=== PATIENT | female | born 1980 | race Hispanic/Latino ===

== ENCOUNTER 2019-06-01 19:13 | Emergency (ER) | payer OTHER, SELFPAY | END 2019-06-01 21:24 | disposition home or self-care (01) | LOC: ERS 19:13 | DX: O99.511 Diseases of the respiratory system complicating pregnancy, first trimester (principal); J10.1 Influenza due to other identified influenza virus with other respiratory manifestations; Z3A.12 12 weeks gestation of pregnancy | CPT/HCPCS: 87081; 87430; 87804; 99283 ==

== ENCOUNTER 2019-11-28 11:12 | Outpatient (CLI) | payer OTHER ==
[2019-11-29 14:17] LABS: SARS-CoV-2 MS2 Positive; SARS-CoV-2 N Gene Negative; SARS-CoV-2 S Gene Negative; SARS-CoV-2 by NAA Not Detected (NotDetected); SARS-CoV-2 orf1ab Negative
== END 2019-11-28 11:13 | disposition home or self-care (01) ==
LOC: LABSCS 11:12
PROVIDERS: ATTEND Obstetrics & Gynecology
DX: Z01.812 Encounter for preprocedural laboratory examination (principal); Z11.59 Encounter for screening for other viral diseases
CPT/HCPCS: 87635; U0003

== ENCOUNTER 2019-11-29 05:34 | Inpatient (IN) | payer OTHER ==
[2019-11-29 06:20] VITALS: BMI 31.8
[2019-11-29 06:48] LABS: Amnisure Test RUPTURE DETECTED (No Rupture)
[2019-11-29 06:49] LABS: Amnisure Internal Control QC ACCEPTABLE (ACCEPTABLE)
[2019-11-29] MEDS ORDERED: Diphenoxylate HCl/Atropine Tablet PO PRN ×2 (07:12)
[2019-11-29] MEDS ORDERED: Acetaminophen 500 MG TAB PO PRN (07:12)
[2019-11-29] MEDS ORDERED: Carboprost 250 MCG/ML AMP IM PRN (07:12)
[2019-11-29] MEDS ORDERED: Ondansetron PF 4 MG/2 ML Vial IVP PRN ×3 (07:12→14:26)
[2019-11-29] MEDS ORDERED: Butorphanol Tartrate 1 MG/ML VIAL SLOW IVP PRN (07:12)
[2019-11-29] MEDS ORDERED: hydrALAZINE 20 MG/ML VIAL SLOW IVP PRN ×2 (07:12→14:26)
[2019-11-29] MEDS ORDERED: Lidocaine 1% (PF) 30 ML VIAL SC PRN (07:12)
[2019-11-29] MEDS ORDERED: Ibuprofen 800 MG TAB PO PRN (07:12)
[2019-11-29] MEDS ORDERED: NS / Oxytocin 40 units/1000ml 1,000 ML IV PRN (07:12)
[2019-11-29] MEDS ORDERED: Promethazine HCl 25 MG/ML VIAL IM PRN ×2 (07:12→10:51)
[2019-11-29] MEDS ORDERED: Methylergonovine 0.2 MG/ML VIAL IM PRN (07:12)
[2019-11-29] MEDS ORDERED: Misoprostol 200 MCG TAB PR PRN (07:12)
[2019-11-29] MEDS ORDERED: HYDROcodone/Acetaminophen 5/325 mg Tablet PO PRN ×4 (07:12→14:26)
[2019-11-29] MEDS ORDERED: NS w/ Oxytocin 10 units 500 ML ONE (07:40)
[2019-11-29 07:46] LABS: Hemoglobin 13.3 g/dL (12.0-16.0); Mean Corpuscular HGB CONC 35.1 g/dL (32.0-36.0); Mean Corpuscular Volume 88.4 fL (78.0-98.0); Mean Platelet Volume 8.2 fL (7.4-10.4); Platelet Count 201 thou/uL (130-400); RBC Distribution Width 12.9 % (11.5-14.5); Red Blood Cell (RBC) Count 4.27 mill/uL (4.20-5.40); White Blood Cell (WBC) Count 9.5 thou/uL (4.8-10.8)
[2019-11-29] MEDS: Lactated Ringer's 1,000 ML IV SCH ×2 (08:06→09:46)
[2019-11-29] MEDS: Misoprostol 100 MCG TAB PO SCH (08:07)
[2019-11-29 08:24] LABS: Syphilis Antibody Nonreactive (Nonreactive); Syphilis Antibody Index 0.03 S/CO (<1.00 Non-Reactive)
[2019-11-29 08:25] LABS: Hep B Surf Ag Non-Reactive S/CO (NonReactive)
[2019-11-29] MEDS ORDERED: Fentanyl 4 mcg/Bup 0.1% Cadd 100 ML ONE (08:42)
--- NOTE | 2019-11-29 10:42 | PDOC.LDHP ---
Labor and Delivery H&P Chief complaint: loss of fluid HPI: Pt reports LOF at home with cramping. Amnisure positive. Current gestational age (weeks): 39 Due date: 12/02/19 Grav: 3 Para: 2 Current complications: none Abnormal US findings: No Current medications: pre- vitamins Previous surgical history: other (breast) Allergies/Adverse Reactions: Allergies Allergy/AdvReac Type Severity Reaction Status Date / Time No Known Allergies Allergy Verified 11/29/19 06:22 Social history: none - Physical Exam Vital signs reviewed and normal: yes General: resting Heart: RRR Lungs: CTAB Abdomen: gravid Extremeties: no edema FHT: category 1 - Vaginal Exam cm dilated: 1 Effacement: 50% Station: -2 - OB Labs Blood type: O RH: positive Antibody Screen: negative HIV: negative RPR: negative HEPSAg: negative 1 hour GCT: negative 3 hour GTT: WNL GBS: negative Urine drug screen: negative Rubella: immune - Assessment L&D Assessment: term patient in labor - Plan Plan: admit to L&D, labor augmentation if indicated, informed consent obtained, anesthesia consult for pain management
[2019-11-29] MEDS ORDERED: Acetaminophen 325 MG TAB PO PRN (10:51)
[2019-11-29] MEDS ORDERED: Lactated Ringer's 500 ML IV PRN (10:51)
[2019-11-29] MEDS ORDERED: EPHEDRINE 25 MG/5 ML SYRINGE SLOW IVP PRN (10:51)
[2019-11-29] MEDS ORDERED: Naloxone HCl 0.4 mg/ml Vial IVP PRN ×2 (10:51)
[2019-11-29] MEDS ORDERED: diphenhydrAMINE 50 MG/ML VIAL IVP PRN (10:51)
[2019-11-29] MEDS ORDERED: Communication Order-Pharmacy FS SCH (11:00)
[2019-11-29] MEDS ORDERED: Fentanyl 4 mcg/Bupivacaine 0.1% Cassette 100 ML EPIDURAL SCH (11:00)
[2019-11-29] MEDS ORDERED: Bupivacaine/Epinephrine 0.25% 30 ML VIAL ONE (11:40)
--- NOTE | 2019-11-29 12:58 | PDOC.OPDEL ---
OB Operative/Delivery Note Delivery Dr/Surgeon: Naveen Pre-Delivery Diagnosis: ruptured membrane Procedure/Post Delivery Dx: spontaneous vaginal delivery Weeks gestation: 39 Anesthesia: epidural - Findings A Sex: female - Additional Findings/Plan Placenta delivered: spontaneous Repaired Obstetrical Laceration: 1st degree Estimated blood loss: 100ml Post delivery plan: routine recovery
[2019-11-29] MEDS ORDERED: NS / Oxytocin 40 units/1000ml 1,000 ML IV SCH (14:26)
[2019-11-29] MEDS ORDERED: Preparation H Ointment 28 GM TUBE PR PRN (14:26)
[2019-11-29] MEDS ORDERED: diphenhydrAMINE 25 MG CAP PO PRN (14:26)
[2019-11-29] MEDS ORDERED: Bisacodyl 10 MG SUPP PR PRN (14:26)
[2019-11-29] MEDS ORDERED: Milk Of Magnesia 30 ML UDCUP PO PRN (14:26)
[2019-11-29] MEDS ORDERED: Benzocaine-Menthol 82.5 ML CAN TOP PRN (14:26)
[2019-11-29] MEDS ORDERED: Ibuprofen 800 MG TAB PO SCH (15:00)
[2019-11-29] MEDS: Ferrous Sulfate 325 MG TAB PO SCH (19:52)
[2019-11-29] MEDS: Docusate Calcium (SURFAK) 240 MG CAP PO SCH (21:06)
[2019-11-29] MEDS: Ibuprofen 800 MG TAB PO SCH (21:06)
[2019-11-30] MEDS: Misoprostol 100 MCG TAB PO SCH (01:40)
[2019-11-30] MEDS: Ibuprofen 800 MG TAB PO SCH ×2 (06:28→14:46)
--- NOTE | 2019-11-30 08:02 | PDOC.PP ---
Post Progress Note Post Day #: 1 Subjective: doing well, no concerns, minimal lochia PO intake tolerated: yes Flatus: yes Ambulation: yes Vital Signs (12 hours) Temp Pulse Resp BP Pulse Ox 11/30/19 04:25 98.4 F 84 16 119/63 98 11/30/19 00:40 98.6 F 76 18 116/58 L 97 Weight Weight 191 lb - Physical Examination General: NAD Respiratory: non-labored breathing Abdominal: no distention Skin: no rash Psychiatric: A&Ox3, normal affect Result Diagrams: 11/29/19 07:33 Additional Labs: Post Labs Blood Type O POSITIVE 11/29/19 07:33 Hep Bs Antigen Non-Reactive S/CO (NonReactive) 11/29/19 07:33 (1) 39 weeks gestation of Code(s): Z3A.39 - 39 WEEKS GESTATION OF Status: Acute (2) Vaginal delivery Code(s): O80 - ENCOUNTER FOR FULL-TERM UNCOMPLICATED DELIVERY Status: Acute - Assessment/Plan PPD1 doing well, request DC today.
[2019-11-30] MEDS: Ferrous Sulfate 325 MG TAB PO SCH (08:53)
[2019-11-30] MEDS: Docusate Calcium (SURFAK) 240 MG CAP PO SCH (08:54)
[2019-11-30 11:50] VITALS: BP 108/56; TEMP 97.7
[2019-11-30] MEDS ORDERED: Adacel (T-DAP) 0.5 ML SYRINGE IM ONE (14:26)
== END 2019-11-30 17:05 | disposition home or self-care (01) | DRG 807 ==
LOC: L&D/OP 05:34 → L&D 09:28 → 3SE 15:21
PROVIDERS: ADMIT Obstetrics & Gynecology; ATTEND Obstetrics & Gynecology
PROC: 10E0XZZ Delivery of Products of Conception, External Approach (ICD-10-PCS; principal; 2019-11-29)
PROC: 0HQ9XZZ Repair Perineum Skin, External Approach (ICD-10-PCS; 2019-11-29)
DX: O70.0 First degree perineal laceration during delivery (principal); Z37.0 Single live birth; Z3A.39 39 weeks gestation of pregnancy
CPT/HCPCS: 36415; 84112; 85027; 86780; 86850; 86900; 86901; 87340; 87635; J2590; U0003